=== PATIENT | female | born 1935 | race Caucasian/White ===

== ENCOUNTER 2016-07-30 15:12 | Emergency (ER) | payer BC ==
[2016-07-30 15:21] VITALS: RESP 18
--- NOTE | 2016-07-30 15:43 | EDPHY ---
H & P Time Seen by Provider: 07/30/16 15:27 HPI/ROS: CHIEF COMPLAINT: Head trauma HISTORY OF PRESENT ILLNESS: Patient is an 81-year-old female who presents emergency department after falling while walking her dogs. The patient states she was walking her house keys in [employer] when another dog came up. This caused her to fall. She struck the back of her head. No loss of consciousness. She has a mild headache. She has no nausea or vomiting. Patient describes bilateral hand and forearm abrasions but "these don't hurt." She has full range of motion of all her extremities. She ambulates without difficulty. She denies any neck or back pain. No focal neurologic deficits. REVIEW OF SYSTEMS: My complete review of systems is negative except as mentioned in the HPI. Past Medical/Surgical History: Includes ankylosing spondylitis Social history: The patient denies drugs or alcohol Smoking Status: Never smoked Physical Exam: Vitals noted GENERAL: Well-appearing, in no acute distress, alert. HEAD: No evidence of trauma. EYES: PERRLA, EOMI, normal to inspection. ENT: Airway intact, no dental or oral injury, no malocclusion, no hemotympanum , normal external examination. NECK: The trachea is midline. There is no crepitus. The C-spine is nontender. NEXUS criteria is negative (no midline tenderness, no distracting injury, no altered mental status, no recent alcohol use, no focal neurologic deficit). RESPIRATORY: Clear to auscultation bilaterally, no rales, rhonchi or wheezing. There is no crepitus or palpable rib fractures. CVS: Regular rate and rhythm, no rubs, murmurs, or gallops. ABDOMEN: Soft, nontender, nondistended, normal bowel sounds, no bruising or abrasions. Pelvis: Stable. No tenderness palpation. Hips full range of motion. BACK: Normal to inspection, no spinal tenderness, no spinal step off, no notable bruising or abrasions. SKIN: Normal color, warm, dry. No pallor or diaphoresis. EXTREMITIES: Right upper extremity: Patient has abrasions to her right palm and right medial forearm. There is no tenderness palpation. No deformity. No tenderness palpation. Neurovascular intact distally. Left upper extremity: Patient has a significant hematoma on her left forearm. There is a mild skin abrasion. No tenderness to palpation. No instability or crepitus. Neurovascular intact distally. Right lower extremity: Abrasion to right knee. No patellar tenderness palpation. Full range of motion. No tenderness palpation. Neurovascular intact distally. Left lower extremity: Atraumatic. No visible signs of trauma. No tenderness palpation. Neurovascular intact distally. NEURO/PSYCH: Alert and oriented x 3, GCS 15, normal mood and affect, normal motor sensory exam. Constitutional: Initial Vital Signs Temperature (C) 36.3 C 07/30/16 15:16 Heart Rate 81 07/30/16 15:16 Respiratory Rate 18 07/30/16 15:16 Blood Pressure 159/85 H 07/30/16 15:16 O2 Sat (%) 96 07/30/16 15:16 O2 Delivery Mode Room Air Allergies/Adverse Reactions: mercury (elemental) [Mercury (Elemental)] Allergy (Intermediate, Verified 15:21) RASH, CONTACT nickel [Nickel] Allergy (Intermediate, Verified 07/30/16 15:21) RASH CONTACT NASOCORT Allergy (Severe, Uncoded 08/19/11 19:35) TACHYCARDIA POLLEN Allergy (Severe, Uncoded 08/19/11 19:35) SNEEZY, CONGESTION, DOGS, CATS Allergy (Intermediate, Uncoded 08/19/11 19:35) SNEEZY, CONGESTION RUBBER Allergy (Intermediate, Uncoded 08/19/11 19:35) RASH, CONTACT Home Medications: Medication Instructions Recorded Aspirin EC [Aspirin EC 81 mg (*)] 81 mg PO DAILY 07/02/11 Levothyroxine [Synthroid 88 mcg 88 mcg PO DAILY@0600 07/02/11 (*)] Meloxicam [Mobic 7.5 mg] 7.5 mg PO 07/30/16 Medical Decision Making ED Course/Re-evaluation: In the emergency department I discussed possible etiologies with the patient and her . I answered all her questions. Patient will have head CT and left forearm x-ray. I do not feel the patient needs an x-ray of her abrasion on her right hand. She has full range of motion with no tenderness palpation. Patient's wounds were cleaned and dressed. There is no laceration present in Head CT: No acute disease noted. Discussed the results with the patient. I re-evaluated the patient. She had no focal neurologic deficits. She is given warnings prior to leaving. She will return with worsening symptoms. Differential Diagnosis: My differential includes but is not limited to subarachnoid hemorrhage, subdural hematoma, epidural hematoma, skull fracture, spinal injury, contusion, abrasion, arm fracture - Data Points Medications Given: Discontinued Medications Tetracaine/Epinephrine/Lidocaine (Lets Soln Topical) 1 ea TP EDNOW ONE Stop: 07/30/16 16:27 Last Admin: 07/30/16 16:51 Dose: 1 ea Departure - Departure Disposition: Home, Routine, Self-Care Clinical Impression: Head contusion Qualifiers: Encounter type: initial encounter Contusion of head detail: unspecified part of head Qualified Code(s): S00.93XA - Contusion of unspecified part of head, initial encounter Hand abrasion Qualifiers: Encounter type: initial encounter Laterality: right Qualified Code(s): S60.511A - Abrasion of right hand, initial encounter Arm abrasion Qualifiers: Encounter type: initial encounter Laterality: unspecified laterality Qualified Code(s): S40.819A - Abrasion of unspecified upper arm, initial encounter Condition: Good Instructions: Head Injury (ED), Abrasion (ED) Additional Instructions: Your head CT was negative. Return with increasing pain, weakness, nausea, vomiting or any other concerns. Referrals: Lisa Chacko MD [Primary Care Provider] - 5-7 days, call for appt.
[2016-07-30] MEDS ORDERED: LETS SOLN TOPICAL 1 EA SYR TP ONE ×2 (16:21→16:26)
[2016-07-30 17:53] VITALS: BP 155/95; PULSE 70; TEMP 98.1; O2SAT 97
== END 2016-07-30 17:53 | disposition home or self-care (01) ==
DX: S00.93XA Contusion of unspecified part of head, initial encounter (principal); S60.511A Abrasion of right hand, initial encounter; S50.811A Abrasion of right forearm, initial encounter; Z79.82 Long term (current) use of aspirin; W18.39XA Other fall on same level, initial encounter; Y92.89 Other specified places as the place of occurrence of the external cause; Y93.K1 Activity, walking an animal

== ENCOUNTER 2016-09-23 22:07 | Emergency (ER) | payer BC ==
[2016-09-23 22:23] VITALS: TEMP 98.1
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
[2016-09-23 23:10] LABS: % IMMATURE GRANULYOCYTES 0.4 % (0.0-1.1); ABSOLUTE IMMATURE GRANULOCYTES 0.04 10^3/uL (0.00-0.10); ADD DIFF? NO; ADD MORPH? NO; ADD SCAN? NO; ATYPICAL LYMPHOCYTE FLAG 20 (0-99); FRAGMENT RBC FLAG 0 (0-99); HEMATOCRIT 40.1 % (38.0-47.0); LEFT SHIFT FLG 0 (0-99); LIPEMIA HEMOLYSIS FLAG 90 (0-99); MEAN CELL HEMOGLOBIN 31.4 pg (27.9-34.1); MEAN CELL HEMOGLOBIN CONCENTR. 34.9 g/dL (32.4-36.7); MEAN CELL VOLUME 89.9 fL (81.5-99.8); MEAN PLATELET VOLUME 8.7 fL (8.7-11.7); PLATELET CLUMPS FLAG 0 (0-99); PLATELET COUNT 379 10^3/uL (150-400); RED BLOOD CELL COUNT 4.46 10^6/uL (4.18-5.33); RED CELL DISTRIBUTION WIDTH 13.2 % (11.5-15.2)
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
[2016-09-23 23:17] LABS: ANION GAP 10 mEq/L (8-16); CALCIUM 9.7 mg/dL (8.5-10.4); CARBON DIOXIDE 22 mEq/l (22-31); CHLORIDE 103 mEq/L (97-110); CREATININE 0.9 mg/dL (0.6-1.0); GLOMERULAR FILTRATION RATE 60; GLUCOSE 113 mg/dL (70-100); POTASSIUM 4.3 mEq/L (3.5-5.2); SODIUM 135 mEq/L (134-144)
--- NOTE | 2016-09-23 23:24 | CPEKG ---
Heart Rate: 66 RR Interval: 909 P-R Interval: 180 QRSD Interval: 96 QT Interval: 428 QTC Interval: 449 P Dewey: 24 QRS Dewey: 8 T Wave Dewey: 68 EKG Severity - BORDERLINE ECG - EKG Impression: SINUS RHYTHM EKG Impression: LOW VOLTAGE IN FRONTAL LEADS EKG Impression: BORDERLINE R WAVE PROGRESSION, ANTERIOR LEADS Electronically Signed By: Jumana Resendez 24-Sep-2016 00:18:47
[2016-09-23 23:28] LABS: TROPONIN I < 0.012 ng/mL (0-0.034)
[2016-09-24 00:38] VITALS: BP 143/69; O2SAT 100
[2016-09-24 01:12] VITALS: PULSE 83; RESP 18
== END 2016-09-24 01:12 | disposition home or self-care (01) ==
DX: T58.91XA Toxic effect of carbon monoxide from unspecified source, accidental (unintentional), initial encounter (principal); R55 Syncope and collapse; Z79.82 Long term (current) use of aspirin

== ENCOUNTER → 2016-10-28 | Outpatient (CLI) | payer BC | LOC: BMCIMAGING 09:16 | PROVIDERS: ATTEND Obstetrics & Gynecology | DX: Z12.31 Encounter for screening mammogram for malignant neoplasm of breast (principal) | CPT/HCPCS: G0202 ==

== ENCOUNTER → 2017-06-16 | Outpatient (CLI) | payer BC | LOC: BMCIMAGING 10:43 | PROVIDERS: ATTEND Podiatrist Foot & Ankle Surgery | DX: M20.11 Hallux valgus (acquired), right foot (principal); M12.871 Other specific arthropathies, not elsewhere classified, right ankle and foot; L97.519 Non-pressure chronic ulcer of other part of right foot with unspecified severity ==

== ENCOUNTER → 2017-10-31 | Outpatient (CLI) | payer BC | LOC: BMCIMAGING 09:06 | PROVIDERS: ATTEND Obstetrics & Gynecology | DX: Z12.31 Encounter for screening mammogram for malignant neoplasm of breast (principal) ==

== ENCOUNTER → 2018-06-19 | Outpatient (CLI) | payer BC | LOC: BMCIMAGING 12:01 | PROVIDERS: ATTEND Family Medicine | DX: M19.012 Primary osteoarthritis, left shoulder (principal) ==

== ENCOUNTER → 2018-07-10 | Outpatient (CLI) | payer BC | LOC: BMCIMAGING 08:18 | PROVIDERS: ATTEND Orthopaedic Surgery | DX: M17.11 Unilateral primary osteoarthritis, right knee (principal); S83.012A Lateral subluxation of left patella, initial encounter ==

== ENCOUNTER → 2018-11-01 | Outpatient (CLI) | payer BC | LOC: BMCIMAGING 13:01 ==